=== PATIENT | female | born 1990 | race African-American/Black ===

== ENCOUNTER 2024-07-08 00:01 | Emergency (ER) | payer MEDICAID ==
[~2024-07-08] VITALS: Ht 167.6 cm; Wt 136.0 kg
[2024-07-08 00:10] VITALS: BP 171/93; PULSE 97; RESP 20; TEMP 98.3; O2SAT 98
== END 2024-07-08 00:34 | disposition left against medical advice (07) ==
LOC: ER 00:15
DX: J45.901 Unspecified asthma with (acute) exacerbation (principal); Z88.0 Allergy status to penicillin; Z00.00 Encounter for general adult medical examination without abnormal findings
CPT/HCPCS: 99283